=== PATIENT | male | born 1970 | race African-American/Black ===

== ENCOUNTER 2017-04-06 21:39 | Emergency (ER) | payer OTHER | END 2017-04-07 01:05 | disposition home or self-care (01) | LOC: CFTX 21:39 → CED 21:39 → CFTX 23:59 | DX: R21 Rash and other nonspecific skin eruption (principal); J45.909 Unspecified asthma, uncomplicated; F17.210 Nicotine dependence, cigarettes, uncomplicated | CPT/HCPCS: 96372; 99283; J1885 ==

== ENCOUNTER → 2017-05-12 | Outpatient (CLI) | payer OTHER ==
[2017-05-12 12:29] LABS: BASOPHIL% 1.3 % (0-2.5); DIFF IND YES; EOSINOPHIL% 0.6 % (0.0-7.0); HEMATOCRIT 36.9 % (38.0-50.0); HEMOGLOBIN 12.1 gm/dL (13.0-16.0); LYMPHOCYTE# 1.7 X10e3 (1.0-3.5); LYMPHOCYTE% 51.8 % (17.0-45.0); MEAN CELL VOLUME 101.3 FL (83-96); MEAN CORPUSCULAR HEMOGLOBIN 33.3 PG (28-34); MEAN CORPUSCULAR HGB CONC 32.9 g/dL (30-36); MEAN PLATELET VOLUME 9.6 FL (6.5-11.5); MONOCYTE# 0.3 X10e3 (0-1.0); MONOCYTE% 8.2 % (3.0-12.0); NEUTROPHIL# 1.3 X10e3 (1.5-7.1); NEUTROPHIL% 38.1 % (40-75); PLATELET COUNT 181 X10e3 (140-420); RED BLOOD COUNT 3.65 X10e (3.90-5.60); RED CELL DISTRIBUTION WIDTH 15.8 % (11.0-15.5); WHITE BLOOD COUNT 3.4 X10e3 (4.0-10.5)
[2017-05-12 12:44] LABS: ANISOCYTOSIS SL; NUCLEATED RED BLOOD CELL 1 /100 (0); PLATELET ESTIMATE NORMAL (NORMAL)
[2017-05-12 13:22] LABS: ALBUMIN SERUM 3.2 g/dL (3.5-5.0); BILIRUBIN,TOTAL 2.6 mg/dL (0.2-2.0); BUN/CREATININE RATIO 14.44; CALCIUM SERUM 8.4 mg/dL (8.4-10.2); CREATININE SERUM 0.9 mg/dL (0.6-1.4); GLOM FILT RATE Estimated 118.3 mL/min (>60); POTASSIUM 3.8 mmol/L (3.5-5.1); PROTEIN TOTAL SERUM 6.3 g/dL (6.0-8.3)
[2017-05-12 13:42] LABS: FOLATE (FOLIC ACID) 1.2 ng/mL (>5.8)
[2017-05-19 03:54] LABS: IMMUNOGLOBULIN A 306 mg/dL (81-463); IMMUNOGLOBULIN E 25418 kU/L (<=114); IMMUNOGLOBULIN G 1416 mg/dL (694-1618); IMMUNOGLOBULIN M 43 mg/dL (48-271)
== END | disposition home or self-care (01) ==
LOC: CLAB 11:39
PROVIDERS: Nurse Practitioner
DX: Z13.220 Encounter for screening for lipoid disorders (principal); Z11.4 Encounter for screening for human immunodeficiency virus [HIV]; Z13.29 Encounter for screening for other suspected endocrine disorder; Z13.6 Encounter for screening for cardiovascular disorders; L30.9 Dermatitis, unspecified
CPT/HCPCS: 36415; 80053; 80061; 82607; 82746; 82784; 82785; 83036; 84443; 85025

== ENCOUNTER 2017-08-05 08:14 | Emergency (ER) | payer OTHER ==
[~2017-08-05] VITALS: Ht 188 cm; Wt 77.1 kg
--- NOTE | ~2017-08-05 | CT2 ---
[facility] A Service of [facility] RADIOLOGY TEXT RESULTS PATIENT: NELLA CHAPARRO LOCATION: [facility] : 70 UNIT #: [id number] AGE: [address]: Rosemarie Stevenson APRN SEX: M ORDER DR: [id number] [facility] [address] [place], [place] [address] [id number] E MR#: [id number] Acc #: [id number] NAME: NELLA CHAPARRO : 1970 SEX: M STUDY DATE/TIME: 08/05/2017 10:31 UNIT: [facility] ROOM: STUDY DESCRIPTION: CT Abd and Pelv W Cont Attending Physician: Rosemarie Stevenson A.P.R.N. Ordering Physician: Ed Doctor [id number] [facility] Primary Care Physician: Jessi Nath M.D. MEDICAL IMAGING REPORT This report is preliminary unless electronic signature is present EXAM CT abdomen and pelvis with contrast 08/05/2017 at 10:31 hours HISTORY A 47-year-old man complaining of right lower quadrant pain with nausea, vomiting and diarrhea for 1 week. COMPARISON None. TECHNIQUE Dynamic helical CT images were obtained from the lung bases through the pubic symphysis with intravenous contrast only. Sagittal and coronal reconstructions were performed. Contrast was Isovue-370 100 mL IV. Total exam DLP 468 mGy/cm. This CT exam was performed with one or more of the following radiation dose reduction techniques: automatic exposure control, adjustment of mA and/or kV according to patient size, and iterative reconstruction. FINDINGS Images through the lung bases are clear. There is no pleural effusion. The distal esophagus is normal. There is trace pericardial thickening or pericardial fluid anteriorly. Images through the abdomen demonstrate diffuse low attenuation of the liver consistent with fatty change. There is no focal liver lesion. The spleen, pancreas and bile ducts are normal. The gallbladder demonstrates no stones or wall thickening. No pericholecystic fluid. The adrenal glands are normal. The kidneys enhance normally. There is no mass, stone or infection. No [facility] A Service of [facility] RADIOLOGY TEXT RESULTS PATIENT: NELLA CHAPARRO LOCATION: [facility] : 70 UNIT #: [id number] AGE: [address]: Rosemarie Stevenson APRN SEX: M ORDER DR: obstruction. The ureters and bladder are unremarkable. Unopacified stomach is contracted but normal in appearance. There is no small bowel distension or small bowel wall thickening. The terminal ileum, cecum and appendix are normal. There is no distension of the colon. There is questionable wall thickening in a segment of the proximal sigmoid colon where there are a few diverticula. There is no stranding of the adjacent fat or fluid. IMPRESSION 1. Normal appendix, cecum and terminal ileum. 2. Normal gallbladder and bile ducts with diffuse fatty change in the liver. 3. Normal pancreas. 4. There is diverticulosis of the sigmoid colon with a questionable wall thickening of a segment of the proximal sigmoid colon just beyond the junction with descending colon. This could represent a subtle change of diverticulitis or colitis. There is no stranding of the fat. No fluid or abscess. No perforation. Dictated by... Chandni Dior M.D. THIS IS AN ELECTRONICALLY VERIFIED REPORT Chandni Dior M.D. at 08/05/2017 2:29 PM [place] TD: 08/05/2017 13:58 JOB #: [id number] MEDICAL IMAGING REPORT Page 1 of 1 COPY
[2017-08-05 09:13] LABS: BASOPHIL# 0.1 X10e3 (0-0.3); BASOPHIL% 1.3 % (0-2.5); EOSINOPHIL% 0.5 % (0.0-7.0); HEMOGLOBIN 11.8 gm/dL (13.0-16.0); LYMPHOCYTE# 1.6 X10e3 (1.0-3.5); LYMPHOCYTE% 28.7 % (17.0-45.0); MEAN CELL VOLUME 104.2 FL (83-96); MEAN CORPUSCULAR HEMOGLOBIN 35.1 PG (28-34); MEAN CORPUSCULAR HGB CONC 33.7 g/dL (30-36); MEAN PLATELET VOLUME 9.3 FL (6.5-11.5); MONOCYTE# 0.4 X10e3 (0-1.0); MONOCYTE% 6.6 % (3.0-12.0); NEUTROPHIL# 3.6 X10e3 (1.5-7.1); NEUTROPHIL% 62.9 % (40-75); PLATELET COUNT 157 X10e3 (140-420); RED BLOOD COUNT 3.36 X10e (3.90-5.60); RED CELL DISTRIBUTION WIDTH 16.8 % (11.0-15.5); WHITE BLOOD COUNT 5.7 X10e3 (4.0-10.5)
[2017-08-05 09:16] LABS: DIFF IND NO
[2017-08-05 09:38] LABS: URINE SOURCE CLEAN CATCH
[2017-08-05 09:47] LABS: URINE APPEARANCE CLEAR; URINE BLOOD NEG (NEG); URINE COLOR DK YELLOW; URINE GLUCOSE NEG (NEG); URINE KETONE TRACE (NEG); URINE LEUKOCYTE ESTERASE 1+ (NEG); URINE NITRATE NEG (NEG); URINE PH 8.5 (5-8); URINE PROTEIN 1+ (NEG)
[2017-08-05 09:50] LABS: URINE BACTERIA AUWI NEG (NEGATIVE); UWBCS1 AUWI 0-2 (0-5)
[2017-08-05 09:56] LABS: ALBUMIN SERUM 3.5 g/dL (3.5-5.0); BILIRUBIN, DIRECT 0.6 mg/dL (0.0-0.2); BILIRUBIN,TOTAL 1.6 mg/dL (0.2-2.0); BUN/CREATININE RATIO 7.77; CALCIUM SERUM 8.9 mg/dL (8.4-10.2); CREATININE SERUM 0.9 mg/dL (0.6-1.4); GLOM FILT RATE Estimated 117.5 mL/min (>60); POTASSIUM 3.3 mmol/L (3.5-5.1)
[2017-08-05 10:10] LABS: CULTURE INDICATED? NO; URINE BILIRUBIN POS (NEG)
[2017-08-05 10:12] LABS: URBCS1 AUWI 0-2 /[HPF] (0-2)
[2017-08-05 10:13] LABS: URINE AMORPHOUS SEDIMENT AMORP PHOSPHATES; URINE GRANULAR CAST 0-2 /[HPF]; URINE MUCUS PRESENT; URINE SQUAMOUS EPITHELIAL CELL FEW /[HPF]; URINE YEAST PRESENT
== END 2017-08-05 12:46 | disposition home or self-care (01) ==
LOC: CED 08:14
PROVIDERS: Nurse Practitioner
DX: R10.11 Right upper quadrant pain (principal); R11.2 Nausea with vomiting, unspecified; R19.7 Diarrhea, unspecified; R94.5 Abnormal results of liver function studies; I10 Essential (primary) hypertension; R06.02 Shortness of breath; R82.99 Other abnormal findings in urine; J45.909 Unspecified asthma, uncomplicated; F17.200 Nicotine dependence, unspecified, uncomplicated
CPT/HCPCS: 36415; 74177; 80048; 80076; 81003; 82150; 82947; 83690; 85025; 96361; 96374; 96375; 99284; J2270; J2765; Q9967